=== PATIENT | male | born 2000 | race Caucasian/White ===

== ENCOUNTER 2021-07-02 13:36 | Emergency (ER) | payer MEDICAID, OTHER ==
[~2021-07-02] VITALS: Ht 180.3 cm; Wt 84.4 kg
[2021-07-02 13:48] VITALS: BP 148/81
[2021-07-02] MEDS ORDERED: IBUPROFEN 600 MG TABLET ONE (13:57)
[2021-07-02] MEDS ORDERED: IBUPROFEN 600 MG TABLET PO ONE (14:00)
[2021-07-02] MEDS ORDERED: DICL50TA7 PO (14:34)
== END 2021-07-02 14:57 | disposition home or self-care (01) ==
LOC: ER 13:39
DX: M25.561 Pain in right knee (principal); Z90.89 Acquired absence of other organs; V09.9XXA Pedestrian injured in unspecified transport accident, initial encounter; Y93.89 Activity, other specified; Y92.89 Other specified places as the place of occurrence of the external cause; Y99.8 Other external cause status
CPT/HCPCS: 73564-TC